=== PATIENT | male | born 1960 | race Caucasian/White ===

== ENCOUNTER 2018-06-15 06:31 | Emergency (ER) | payer BC ==
[2018-06-15] MEDS ORDERED: ASPIRIN 81 MG PO STA (06:48)
[2018-06-15] MEDS ORDERED: SODIUM CHLORIDE 0.9% 1,000 ML IV STA (06:48)
--- NOTE | 2018-06-15 06:49 | ED ---
Chest Pain HPI - General Source: patient Mode of arrival: ambulatory Limitations: no limitations <Sheyla Pascal - Last Filed: 06/15/18 07:07> <John Maynard - Last Filed: 06/15/18 09:42> - General Chief Complaint: Chest Pain Stated Complaint: Back and arm pain Time Seen by Provider: 06/15/18 06:48 - History of Present Illness Initial Comments: Derian is a 57-year-old gentleman with a history of hypertension and hyperlipidemia who presents the emergency department today for evaluation of sudden onset of pain between his scapula reading down his left arm. Patient reports his upper back has been bothering him for a couple of days duration. He reports that he woke this morning and went to get out of bed he had sudden worsening of the pain between his scapula. Pain radiated down his left arm and felt like numbness in his left arm. Patient states the pain was 10 out of 10 intensity at onset, he did take 2 aspirin at home however he notes the in 2012. Patient reports that since coming to the emergency department his pain is improving and is now rated a 7 out of 10 intensity. Pain is sharp between his scapula. She denies any recent injury though he does report he thought he tweaked his back days ago. Patient denies any cardiac history or history of cardiovascular peripheral vascular or peripheral arterial disease. (Sheyla Pascal) - Related Data Home Medications Medication Instructions Recorded Confirmed Losartan Potassium [Cozaar] 100 mg PO DAILY 08/02/14 06/15/18 Ascorbic Acid/Multivit-Min 1,000 mg PO DAILY 06/15/18 06/15/18 [Emergen-C 1,000 mg Packet] Aspirin EC [Ecotrin Low Dose] 162 mg PO ONCE PRN 06/15/18 06/15/18 LORazepam [Ativan] 0.25 - 0.5 mg PO HS PRN 06/15/18 06/15/18 Previous Rx's Medication Instructions Recorded Cyclobenzaprine [Flexeril] 10 mg PO TID PRN #12 tablet 06/15/18 Allergies Allergy/AdvReac Type Severity Reaction Status Date / Time dichlorotetrafluoroethane Allergy Unknown Verified 06/15/18 07:17 [From Fluro-Ethyl] ethyl chloride Allergy Unknown Verified 06/15/18 07:17 [From Fluro-Ethyl] Penicillins Allergy Unknown Verified 06/15/18 07:17 sulfacetamide sodium Allergy Unknown Verified 06/15/18 07:17 [From Sulfamide] Review of Systems ROS Other: All systems not noted in ROS Statement are negative. <Sheyla Pascal - Last Filed: 06/15/18 07:07> ROS Other: All systems not noted in ROS Statement are negative. <John Maynard - Last Filed: 06/15/18 09:42> ROS Statement: Those systems with pertinent positive or pertinent negative responses have been documented in the HPI. EKG Findings - EKG Comments: EKG Findings:: EKG obtained at 6:44 AM, rate is 88 rhythm is sinus, there is leftward axis, normal intervals, FL 1 mL 4 QRS 76 QTC 435. There are no acute ST elevations or depressions there is no evidence of acute ischemia or infarction. <Sheyla Pascal - Last Filed: 06/15/18 07:07> Past Medical History Past Medical History: Hyperlipidemia, Hypertension History of Any Multi-Drug Resistant Organisms: None Reported Past Surgical History: Orthopedic Surgery Past Anesthesia/Blood Transfusion Reactions: No Reported Reaction Past Psychological History: No Psychological Hx Reported Smoking Status: Never smoker Past Alcohol Use History: Occasional Past Drug Use History: None Reported - Past Family History Father Family Medical History: Cancer Additional Family Medical History / Comment(s): prostate & skin cancer Mother Family Medical History: Cancer <Sheyla Pascal - Last Filed: 06/15/18 07:07> General Exam Limitations: no limitations <Sheyla Pascal - Last Filed: 06/15/18 07:07> <John Maynard - Last Filed: 06/15/18 09:42> - General Exam Comments Initial Comments: GENERAL: Patient is well-developed and well-nourished. Patient is nontoxic and well- hydrated and is in no distress. HENT: Normocephalic, Atraumatic. Neck is soft and supple. No significant lymphadenopathy is noted. Oropharynx is clear. Moist mucous membranes. Neck has full range of motion without eliciting any pain. EYES: The sclera were anicteric and conjunctiva were pink and moist. Extraocular movements were intact and pupils were equal round and reactive to light. Eyelids were unremarkable. PULMONARY: Unlabored respirations. Good breath sounds bilaterally. No audible rales rhonchi or wheezing was noted. CARDIOVASCULAR: There is a regular rate and rhythm without any murmurs gallops or rubs. Warm and well-perfused extremities Pulses present and equal ABDOMEN: Soft and nontender with normal bowel sounds. No pulsating masses in the abdomen SKIN: Skin is clear with no lesions or rashes and otherwise unremarkable. Normal color, no mottling, no diaphoresis NEUROLOGIC: Patient is alert and oriented x3. Cranial nerves II through XII are grossly intact. Motor and sensory are also intact. Normal speech, volume and content. Symmetrical smile. MUSCULOSKELETAL: Normal extremities with adequate strength and full range of motion. No lower extremity swelling or edema. No calf tenderness. LYMPHATICS: No significant lymphadenopathy is noted PSYCHIATRIC: Normal psychiatric evaluation. Limitations: no limitations (Sheyla Pascal) Course <Sheyla Pascal - Last Filed: 06/15/18 07:07> <John Maynard - Last Filed: 06/15/18 09:42> Vital Signs 06/15/18 06/15/18 06/15/18 06:46 07:24 07:30 Temperature 97.9 F Pulse Rate 92 80 77 Respiratory 18 13 12 Rate Blood Pressure 166/108 164/107 164/107 O2 Sat by Pulse 96 96 95 Oximetry 06/15/18 07:50 Temperature Pulse Rate 80 Respiratory 18 Rate Blood Pressure 154/96 O2 Sat by Pulse 97 Oximetry - Reevaluation(s) Reevaluation #1: 06/15/18 09:40 Computed tomography scan of the chest shows ectatic aorta. No aneurysm or dissection. Some enlarged lymph nodes. Patient and family are advised regarding lymph nodes and need for follow-up for this as well as need for follow -up computed tomography scan for this. They do demonstrate understanding. Chest x-ray shows no acute process. Patient reevaluated by myself, Dr. Maynard. Patient resting comfortably in bed. Discomfort 10/26. Patient states onset of symptoms was actually 4 days ago. Patient states this was on his tractor. Patient states he was turning his head as he was moving. Patient has had intermittent symptoms for the past 4 days. Symptoms were much worse throughout the night. Patient states symptoms are improved or worsen with position changes. Patient denies ever having any chest discomfort. No dyspnea. Patient and family are updated on results. Patient and family are comfortable with discharge and agreeable to close follow-up with primary care physician. (John Maynard) Chest Pain MDM <Sheyla Pascal - Last Filed: 06/15/18 07:07> <John Maynard - Last Filed: 06/15/18 09:42> - MDM The patient was seen and evaluated history was valuate by the patient and at bedside Patient with minimal cardiac history presenting with sudden onset of a sharp stabbing pain between his scapula with numbness down the left arm Is hemodynamically stable, cardiac risks factors include hypertension and hyperlipidemia The patient's physical exam is unremarkable patient is in mild distress Cardiac workup was ordered, chest x-ray ordered Aspirin ordered Patient care was signed out to Dr. Maynard at shift change she will follow up on labs imaging and reevaluation of patient (Sheyla Pascal) Disposition <Sheyla Pascal - Last Filed: 06/15/18 07:07> Is patient prescribed a controlled substance at d/c from ED?: No Time of Disposition: 09:42 <John Maynard - Last Filed: 06/15/18 09:42> Clinical Impression: Thoracic back pain Disposition: HOME SELF-CARE Condition: Stable Instructions (If sedation given, give patient instructions): Thoracic Pain (ED) Additional Instructions: Please follow-up with primary care physician in the next day or 2 for recheck. Return for chest pain, difficulty breathing, weakness, worsening or change in symptoms, or any other concerns. Please have your primary care physician review CT results and he will need repeat follow-up computed tomography scan in the next 3 months. Prescriptions: Cyclobenzaprine [Flexeril] 10 mg PO TID PRN #12 tablet PRN Reason: Pain Referrals: Rahul Hernandez DO [Primary Care Provider] - 1-2 days
--- NOTE | 2018-06-15 07:07 | XR ---
EXAMINATION TYPE: XR chest 2V DATE OF EXAM: 06/15/2018 COMPARISON: NONE HISTORY: Shortness of breath TECHNIQUE: Frontal and lateral views of the chest are obtained. FINDINGS: Scattered senescent parenchymal changes noted. Hyperinflation compatible with COPD. No evidence for infiltrate. No evidence for atelectasis. Heart size is stable. Mediastinal structures are stable and grossly unremarkable. No evidence for hilar prominence. Degenerative changes dorsal spine. IMPRESSION: 1. No evidence for acute pulmonary disease.
[2018-06-15 07:26] VITALS: PULSE 80
[2018-06-15 07:27] LABS: Basophils # (A) 0.1 k/uL (0-0.2); Basophils % (A) 1 %; Eosinophils # (A) 0.1 k/uL (0-0.7); Eosinophils % (A) 2 %; HCT 43.3 % (39.0-53.0); Lymphocytes # (A) 1.3 k/uL (1.0-4.8); Lymphocytes % (A) 19 %; MCH 30.7 pg (25.0-35.0); MCHC 34.7 g/dL (31.0-37.0); MCV 88.3 fL (80.0-100.0); Mean Platelet Volume 7.4; Monocytes # (A) 0.4 k/uL (0-1.0); Monocytes % (A) 6 %; Neutrophils # (A) 4.7 k/uL (1.3-7.7); Neutrophils % (A) 70 %; Platelet Count 229 k/uL (150-450); RDW 12.7 % (11.5-15.5); WBC 6.6 k/uL (3.8-10.6)
[2018-06-15 07:32] LABS: INR 0.9 (<1.2); Partial Thromboplastin Time 24.9 sec (22.0-30.0); Prothrombin Time 10.1 sec (9.0-12.0)
[2018-06-15 07:33] LABS: ALT 44 U/L (21-72); AST 30 U/L (17-59); Albumin 4.1 g/dL (3.5-5.0); Alkaline Phosphatase 71 U/L (38-126); Anion Gap 7 mmol/L; Blood Urea Nitrogen 16 mg/dL (9-20); Calcium 9.1 mg/dL (8.4-10.2); Carbon Dioxide 25 mmol/L (22-30); Chloride 109 mmol/L (98-107); Glucose 94 mg/dL (74-99); Magnesium 1.7 mg/dL (1.6-2.3); Sodium 141 mmol/L (137-145); Total Bilirubin 0.8 mg/dL (0.2-1.3); Total Protein 6.5 g/dL (6.3-8.2)
[2018-06-15 07:49] LABS: Creatine Kinase 128 U/L (55-170)
[2018-06-15 08:00] VITALS: RESP 18
[2018-06-15 08:03] LABS: Creatine Kinase MB 0.9 ng/mL (0.0-2.4); Troponin I <0.012 ng/mL (0.000-0.034)
--- NOTE | 2018-06-15 09:20 | CT ---
EXAMINATION TYPE: CT angio chest DATE OF EXAM: 06/15/2018 COMPARISON: Radiograph same day HISTORY: 57-year-old male Back and arm pain; Eval aorta TECHNIQUE: Contiguous axial scanning of the chest performed without and with IV Contrast, patient inj ected with 100 ml mL of Isovue 370. Coronal/sagittal MIP reconstructions performed. 3-D reconstructio ns generated on a dedicated independent workstation. CT DLP: 869.8 mGycm Automated exposure control for dose reduction was used. FINDINGS: Heart normal size without pericardial effusion. Initial noncontrast images show no evidence for acute intramural hematoma. The ascending aorta is ectatic at 3.7 cm. Conventional arch vessel branching anatomy. Remainder of the aorta is normal caliber. No evidence for aortic dissection. No pulmonary embolus seen to the proximal segmental level. Nonspecific, mildly enlarged 1.1 cm right paratracheal lymph nodes and 1.2 cm subcarinal lymph node. Calcified left hilar lymph nodes compatible with prior granulomatous disease. Evaluation of the lungs shows mild biapical pleural parenchymal scarring and mild dependent atelectas is. There is a calcified granuloma in the posterior left base with bands of atelectasis or scarring i n the left lower lobe. Additional tiny calcified granulomas lateral left midlung along the major fiss ure. Visualized upper abdomen shows no gross abnormality. Bones: Endplate spondylosis mid to lower thoracic spine. No osseous destructive process. IMPRESSION: 1. ECTATIC ASCENDING AORTA AT 3.7 CM WITHOUT ALEX ANEURYSM. NO EVIDENCE FOR ACUTE INTERNAL HEMATOMA OR AORTIC DISSECTION. 2. A COUPLE MILDLY ENLARGED PARATRACHEAL LYMPH NODES MEASURE UP TO 1.1 CM. THIS MAY RELATE TO PRIOR G RANULOMATOUS DISEASE. [address] MONTH FOLLOW-UP CT RECOMMENDED TO ENSURE STABILITY/RESOLUTION.
[2018-06-15] MEDS ORDERED: ORPHENADRINE 30 MG/ML 2 ML VIAL IVP STA (09:33)
[2018-06-15] MEDS ORDERED: KETOROLAC 30 MG/ML 1 ML VIAL IVP STA (09:33)
[2018-06-15] MEDS ORDERED: CYCLOBENZAPRINE 10MG STARTER 3 TAB BTL PO STA (09:48)
[2018-06-15 10:11] VITALS: BP 158/95; TEMP 98.5
== END 2018-06-15 10:05 | disposition home or self-care (01) ==
LOC: EC 06:31
DX: M54.6 Pain in thoracic spine (principal); R07.9 Chest pain, unspecified; R20.0 Anesthesia of skin; I77.819 Aortic ectasia, unspecified site; I10 Essential (primary) hypertension; Z79.82 Long term (current) use of aspirin; Z79.899 Other long term (current) drug therapy; Z88.8 Allergy status to other drugs, medicaments and biological substances; Z88.0 Allergy status to penicillin; Z88.2 Allergy status to sulfonamides; Z86.39 Personal history of other endocrine, nutritional and metabolic disease
CPT/HCPCS: 36415; 93005; 85379; 83880; 80053; 82550; 82553; 83735; 84484; 85025; 85610; 85730; 71046; 71275; 99285; 96374; 96361 ×2; J1885; Q9967

== ENCOUNTER 2018-08-03 11:38 | Day surgery (SDC) | payer BC ==
[2018-07-23 13:08] VITALS: BMI 27.9
[~2018-08-03 11:38] MED LIST: BACITRACIN 50,000 UNIT, POLYMYXIN B 500,000 UNIT in SODIUM CHLORIDE 0.9% IRRIGATIO 1,00... IRRIGATION ONE; CLINDAMYCIN 900 MG in DEXTROSE 5% IN WATER 50 ML IVPB ONE; HYDROmorphone 0.5 MG/0.5 ML SYRINGE IVP PRN; LACTATED RINGERS 1,000 ML IV SCH; MORPHINE SULFATE 4 MG/ML SYRINGE IV PRN
[2018-08-03] MEDS ORDERED: LIDOCAINE 1% 20 ML VIAL (10MG/ML) FOR IV START SQ ONE (12:14)
[2018-08-03] MEDS ORDERED: GLYCOPYRROLATE 0.2 MG/ML 2 ML VIAL ONE (12:51)
[2018-08-03] MEDS ORDERED: NEOSTIGMINE 1 MG/ML 10 ML VIAL ONE (12:51)
[2018-08-03] MEDS ORDERED: PROPOFOL 10 MG/ML 20 ML VIAL IV ONE (12:51)
[2018-08-03] MEDS ORDERED: ePHEDrine SULFATE/0.9% NACL/PF 50 MG/5 ML SYRINGE IV ONE (12:51)
[2018-08-03] MEDS ORDERED: DEXAMETHASONE SOD PHOS (MDV) 100 MG/10 ML VIAL ONE (12:51)
[2018-08-03] MEDS ORDERED: PHENYLEPHRINE-0.9% NACL SYG 1 MG/10 ML SYRINGE ONE (12:51)
[2018-08-03] MEDS ORDERED: LIDOCAINE 1% INJ 10MG/ML (20 ML MDV) ONE (12:51)
[2018-08-03] MEDS ORDERED: ONDANSETRON 4 MG/2 ML VIAL ONE (12:51)
[2018-08-03] MEDS ORDERED: fentaNYL (PF) 50 MCG/ML 2 ML AMP ONE (12:51)
[2018-08-03] MEDS ORDERED: SUCCINYLCHOLINE CHLORIDE 100 MG/5 ML SYR IV ONE (12:51)
[2018-08-03] MEDS ORDERED: MIDAZOLAM 2 MG/2 ML VIAL ONE (12:51)
[2018-08-03] MEDS ORDERED: THROMBIN (BOVINE) 5,000 UNIT VIAL TOPICAL ONE (13:39)
[2018-08-03] MEDS ORDERED: GELATIN SPONGE,ABSORB (LARGE) 1 EACH SPONGE MISCELLANE ONE (13:39)
[2018-08-03] MEDS ORDERED: BUPIVACAIN-EPI 0.5%-1:200,000 30 ML VIAL SQ ONE (13:39)
[2018-08-03] MEDS ORDERED: HYDROmorphone 0.5 MG/0.5 ML SYRINGE IVP PRN (14:25)
[2018-08-03] MEDS ORDERED: ACETAMINOPHEN TAB 325 MG TAB PO PRN (14:25)
[2018-08-03] MEDS ORDERED: ONDANSETRON 4 MG/2 ML VIAL IVP PRN (14:25)
[2018-08-03] MEDS ORDERED: BENZOCAINE/MENTHOL LOZENG 1 EACH LOZENGE MUCOUS MEM PRN (14:25)
[2018-08-03] MEDS ORDERED: LORazepam 0.5 MG TAB PO PRN (14:27)
[2018-08-03] MEDS ORDERED: Acetaminophen-Codeine 300-30mg TAB PO PRN (14:27)
[2018-08-03] MEDS ORDERED: SODIUM CHLORIDE 0.9% 1,000 ML IV SCH (14:30)
--- NOTE | 2018-08-03 14:32 | P.OP ---
Date of Procedure: 08/03/18 Preoperative Diagnosis: Herniated nuclear pulposus C6 7, left upper extremity radiculopathy, left upper extremity weakness Postoperative Diagnosis: Same Anesthesia: GETA Pathology: none sent Condition: stable Disposition: PACU Description of Procedure: BRIEF OPERATIVE NOTE Preoperative Diagnosis:Herniated nuclear pulposus C6 7, left upper extremity radiculopathy, left upper extremity weakness Postoperative Diagnosis: Same Procedure: Anterior cervical decompression with discectomy and fusion C6 7 Placement of interbody allograft bone graft C6 7 Application of anterior cervical plate C6 7 Surgeon: Dr. Storey Checkering Machine Adjuster: Kelvin Curry is present throughout the entire the case persistence during positioning, dissection, exposure, visualization, and all crucial elements of the case as well as closure. Anesthesia: General anesthesia Estimated blood loss: Approximately 20 mL Complications: None apparent Components implanted: K2M [place] anterior cervical plate system with Vikos interbody allograft bone graft Disposition: To recovery room in good stable condition. OPERATIVE INDICATIONS The patient has had significant and severe issues in their neck and upper extremities on the left. His found have a extruded disc herniation at C6 7 which collated with his neck and left upper extremity symptoms. He is having severe radiculopathy in his left upper extremity and was having some evidence of weakness over C7 distribution. The patient has been through conservative treatment. He was not having any benefit despite conservative treatment. We discussed various treatment options including surgery, and the patient wishes to proceed with surgery We discussed the risk, patient's alternatives and benefits of surgery including but not limited to, risk of bleeding risk of infection, risk of need for further surgery, risk of decreased, loss of motion, muscle function, malunion nonunion, hardware failure, nerve damage, paralysis, heart attack, and . OPERATIVE SUMMARY After discussing all the risks, patient alternatives and benefits at length, the patient elected to proceed with surgical intervention, signed informed consent, and presented for their procedure. The patient was seen and examined in the preoperative holding area and the surgical site was marked. The patient was given antibiotics and brought to the operating room. The patient was positioned on the operating room table in a supine position being careful to pad any bony prominences and pressure points. The patient was sedated and intubated by anesthesia in standard fashion. Once the airway and C- spine were stabilized the patient's arms were padded and tucked at her side, with her shoulders gently taped. The head was placed in a donut pad with the neck in good neutral alignment and position. We were careful to maintain the patient's cervical spine and good neutral alignment and position throughout. The patient was prepped and draped in a normal standard fashion. An appropriate timeout and keystone protocol performed. We were able to proceed with the surgery. The local wound area was infiltrated with local anesthetic. An incision was made transversely approximately 2-1/2 cm over the appropriate levels of C6 7. Dissection was taken down subcutaneously to the level of the platysma which was split in line with its fibers. Dissection was taken with a carotid approach, with the trachea and esophagus medial and the carotid sheath laterally. We dissected down to the anterior surface of the vertebral bodies of C6 and C7. Intraoperative x-ray was taken which showed a marker at the appropriate level of C6-7. With the appropriate level positively confirmed, we were able to proceed with discectomy at the appropriate levels of C6 7. All of the operative levels were exposed appropriately. The patient had all their twitches back, and there was no evidence of recurrent laryngeal issue. The wound was copiously irrigated and suctioned dry as had been done periodically throughout the case. At the appropriate level of C6 7, I established an annulotomy with an 11 blade scalpel. A discectomy was performed with a combination of pituitary rongeurs, curettes, a high-speed bur, and Kerrison rongeurs. The posterior longitudinal ligament was taken down as were any posterior osteophytes. There is a number of disc herniation fragments posteriorly particular to the left side. There is extruded disc which was able to be removed. This gave good central and bilateral foraminal decompression. There is no evidence of any dural tear or leak. The endplates were prepared with a high-speed bur. With the endplates in good parallel position, I was able to size for the appropriate size interbody graft. The wound was irrigated and suctioned dry the graft was prepared and malleted into position. It had good alignment and position with the anterior surface flush with the anterior surface of the vertebral bodies. With the grafts intact, I was able to measure and contour and appropriate sized plate. The plate was positioned at the midline over the appropriate levels of C6 and 7. Screw holes were established with a hand drill and drill guide. Screws were placed in good alignment and position with excellent bony purchase. They were seated under the locking device. The construct was checked and found to be stable. Intraoperative x-ray was taken which showed good alignment and position of the implants at the appropriate levels. There was no evidence of any dural tear or leak. Good hemostasis was maintained. The wound was copiously irrigated and suctioned dry as had been done periodically throughout the case. The platysma was closed with absorbable suture. The subcutaneous tissue was closed. The subcuticular tissue was closed with absorbable suture. The wound was cleaned and dried and dressed appropriately. A soft cervical collar was placed appropriately. The patient was woken up by anesthesia, extubated, transferred back gently to their hospital bed and brought to the recovery room in good stable condition. The patient will be admitted to the hospital for appropriate postoperative care, medical management and monitoring. We will continue to follow them closely about the postoperative course.
[2018-08-03 14:52] VITALS: TEMP 97.1
[2018-08-03 15:01] VITALS: RESP 16
[2018-08-03 15:59] VITALS: BP 169/99; PULSE 99
--- NOTE | 2018-08-03 15:59 | XR ---
EXAMINATION TYPE: XR cervical spine 1V DATE OF EXAM: 08/03/2018 COMPARISON: NONE HISTORY: 58-year-old male needle placement TECHNIQUE: Single crosstable lateral view FINDINGS: Patient intubated and in the OR. A metal needle traverses the anterior soft tissues and is in within the inferior C6 endplate region. IMPRESSION: Surgical needle at the anterior C6 inferior endplate region.
--- NOTE | 2018-08-03 15:59 | XR ---
EXAMINATION TYPE: XR cervical spine 1V DATE OF EXAM: 08/03/2018 COMPARISON: NONE HISTORY: 50-year-old male hardware placement TECHNIQUE: Single crosstable lateral view FINDINGS: Intraoperative view. Patient intubated. Interval placement of C6-C7 ACDF. IMPRESSION: Interval C6-C7 ACDF placement.
[2018-08-03] MEDS ORDERED: CLINDAMYCIN 900 MG in DEXTROSE 5% IN WATER 50 ML IVPB SCH ×2 (16:00)
[2018-08-03] MEDS ORDERED: ACETAMINOPHEN TAB 500 MG TAB PO SCH (21:00)
[2018-08-04] MEDS ORDERED: LOSARTAN 50 MG TAB PO SCH (09:00)
[2018-08-04] MEDS ORDERED: ASCORBIC ACID 500 MG TAB PO SCH (09:00)
== END 2018-08-03 16:54 | disposition home or self-care (01) ==
LOC: OR 11:38
PROVIDERS: ATTEND Orthopaedic Surgery Orthopaedic Surgery of the Spine
DX: M50.123 Cervical disc disorder at C6-C7 level with radiculopathy (principal); G62.9 Polyneuropathy, unspecified; I10 Essential (primary) hypertension; H40.9 Unspecified glaucoma; J45.909 Unspecified asthma, uncomplicated; Z79.899 Other long term (current) drug therapy; Z88.2 Allergy status to sulfonamides; Z88.1 Allergy status to other antibiotic agents; Z88.0 Allergy status to penicillin; Z91.013 Allergy to seafood
CPT/HCPCS: 72020; 22551; 20931; C1713; C1762; J2250; J2710; J2405; J2001; J3010; J1100; J2370; J0330; J2704

== ENCOUNTER → 2018-09-01 | Outpatient (CLI) | payer BC ==
--- NOTE | 2018-09-01 16:21 | US ---
EXAMINATION TYPE: US kidneys/renal and bladder DATE OF EXAM: 09/01/2018 COMPARISON: NONE CLINICAL HISTORY: N20.[address] today EXAM MEASUREMENTS: Right Kidney: 12.0 x 5.7 x 6.3 cm Left Kidney: 10.2 x 5.6 x 5.6 cm Right Kidney: multiple echogenic foci seen, largest was mid pole = 0.7cm Left Kidney: unable to appreciate small stones seen on CT, mid to upper pole 2.7cm hypoechoic area, u nable to determine if normal anatomy versus mass. Bladder: wnl Bilateral Jets seen: yes IMPRESSION: 1. The banquet set up person delineate the area of lobulated contour in the left upper pole however images are not clear whether this simply relates to the patient's anatomy or a mass. CT with contrast of the abd omen is recommended as sonography was inconclusive. 2. Bilateral nonobstructing renal calculi are better appreciated on CT.
== END | disposition home or self-care (01) ==
LOC: RADUSWWP 15:19
PROVIDERS: ATTEND Family Medicine
DX: N20.0 Calculus of kidney (principal)
CPT/HCPCS: 76770

== ENCOUNTER → 2018-09-01 | Outpatient (CLI) | payer BC ==
--- NOTE | 2018-09-01 14:40 | CT ---
EXAMINATION TYPE: CT abdomen pelvis wo con DATE OF EXAM: 09/01/2018 COMPARISON: 06/15/2018 HISTORY: Left flank and groin pain x [address] DLP: 1043 mGycm Automated exposure control for dose reduction was used. TECHNIQUE: Helical acquisition of images was performed from the lung bases through the pelvis. FINDINGS: LUNG BASES: There is a calcified benign left basilar granuloma. Bandlike pleural parenchymal scarring is also seen of the left lung base. 2 3 mm pulmonary nodules are seen in a subpleural location in th e left lower lung on image 11. LIVER/GB: Unremarkable unenhanced morphology. Gallbladder is partially contracted. No gallstones are seen. PANCREAS: No significant abnormality is seen. SPLEEN: No significant abnormality is seen. ADRENALS: No significant abnormality is seen. KIDNEYS: There is a 3 mm distal ureteral obstructing calculus just proximal to the left ureterovesicu lar junction (approximately 1 cm away). This results in very mild left-sided hydroureteronephrosis. L obulated contour of the left upper pole of the kidney is noted. Underlying left renal mass is not exc luded and could be further evaluated with renal ultrasound or enhanced CT. There are 3 nonobstructing left lower pole 2 mm renal calculi and a punctate 1 mm left midpole renal calculus. There are 2 nono bstructing right upper pole renal calculi measuring 5 mm and 4 mm. Within the right midpole there is a 3 mm nonobstructing calculus. Within the right lower pole there are 4 mm and 3 mm nonobstructing ri ght renal calculi. No right-sided hydronephrosis. FREE AIR: No free air is visualized ADENOPATHY: No greater than 1 cm short axis lymph node is noted of the abdomen or pelvis. REPRODUCTIVE ORGANS: Prostate gland is enlarged. Inguinal rings are patulous with mastectomy changes. URINARY BLADDER: No significant abnormality is seen. OSSEOUS STRUCTURES: Punctate left femoral head sclerotic focus likely represents a small bone island . Mild degenerative changes of the spine are noted BOWEL: No dilated large or small bowel. IMPRESSION: 1. There is a 4 MM OBSTRUCTING CALCULUS WITHIN THE DISTAL LEFT URETER APPROXIMATELY 1 CM FROM THE LEF T URETEROVESICULAR JUNCTION CREATING VERY MILD LEFT-SIDED HYDROURETERONEPHROSIS. MULTIPLE ADDITIONAL NONOBSTRUCTING BILATERAL RENAL CALCULI ARE PRESENT. 2. LOBULATED CONTOUR THE LEFT UPPER POLE MAY SIMPLY RELATE TO ANATOMIC VARIATION HOWEVER RENAL MASS I S NOT ENTIRELY EXCLUDED AND COULD BE FURTHER EVALUATED WITH RENAL ULTRASOUND OR CONTRAST-ENHANCED CT ABDOMEN.
== END | disposition home or self-care (01) ==
LOC: RADCTMAIN 14:11
PROVIDERS: ATTEND Family Medicine
DX: N13.2 Hydronephrosis with renal and ureteral calculous obstruction (principal)
CPT/HCPCS: 74176

== ENCOUNTER → 2018-09-28 | Outpatient (CLI) | payer BC ==
--- NOTE | 2018-09-28 10:48 | CT ---
EXAMINATION TYPE: CT chest wo/w con DATE OF EXAM: 09/28/2018 COMPARISON: Prior CT dated 06/15/2018 HISTORY: Enlarged lymph nodes CT DLP: 847.5 mGycm Automated exposure control for dose reduction was used. CONTRAST: CT scan of the chest is performed without and with IV Contrast, patient injected with 100 mL of Isovu e 300. FINDINGS: LUNGS: The lungs are stable, there is no change in the nodularity seen in the left lung. There is n o pleural effusion or pneumothorax seen. The tracheobronchial tree is patent. MEDIASTINUM: The paratracheal, prevascular, aorticopulmonary window node seen on prior exam are again noted and show similar appearance, mild enlargement. No pericardial effusion is seen. AORTA: No additional significant abnormality is seen. OTHER: Nonobstructive right-sided nephrolithiasis is again seen. Spleen is at the upper limit of nor mal for size. Postop change noted to the lower cervical spine. IMPRESSION: Stable exam.
== END | disposition home or self-care (01) ==
LOC: RADCTMAIN 08:59
PROVIDERS: ATTEND Family Medicine
DX: R59.0 Localized enlarged lymph nodes (principal)
CPT/HCPCS: 71270; Q9967

== ENCOUNTER → 2019-02-18 | Outpatient (CLI) | payer BC ==
--- NOTE | 2019-02-18 15:35 | CT ---
EXAMINATION TYPE: CT chest wo con DATE OF EXAM: 02/18/2019 COMPARISON: 09/28/2018 and 06/15/2018 HISTORY: 58-year-old male unspecified enlarged lymph nodes, Follow up scan per patient TECHNIQUE: Contiguous axial scanning of the chest without IV contrast. Coronal and sagittal reconstru ctions performed. CT DLP: 358.4 mGycm Automated exposure control for dose reduction was used. FINDINGS: Heart normal size without pericardial effusion. Ectatic aortic root at 3.8 cm. Conventional vessel branching anatomy. Redemonstrated nonenlarged and mildly enlarged mediastinal lymph nodes measuring up to 1.1 cm right p aratracheal, 9 mm right tracheobronchial angle, 1.1 cm AP window, 8 mm left tracheobronchial angle, 1 .1 cm subcarinal, and 8 mm left paraesophageal. These lymph nodes are stable from 09/28/2018 but again noted to be larger from 06/15/2018. Trace bilateral gynecomastia. Calcified granuloma at the posterior left lung base. Strandy left basilar atelectasis. 4 mm nodularity along the major fissure peripherally in the left midlung, axial image 27 through 29 i s unchanged. Left apical pleural parenchymal scarring. No consolidation or pleural effusion. Visualized upper abdomen shows no gross abnormal body. Bones: Partially visualized ACDF hardware. Moderate anterior endplate spondylosis mid to lower thorac ic spine. IMPRESSION: 1. NONENLARGED AND MILDLY ENLARGED MEDIASTINAL LYMPH NODES MEASURING UP TO 1.1 CM STABLE FOR 5 MONTHS . THESE ARE NOTED TO BE LARGER FROM 06/15/2018. ADDITIONAL 6-12 MONTH FOLLOW-UP RECOMMENDED. 2. 4 MM NODULARITY PERIPHERALLY IN THE LEFT MID LUNG STABLE FROM 06/07/2018 SUGGESTING A BENIGN ETIOLO GY. THESE CAN ALSO BE REASSESSED AT THE PATIENT'S FOLLOW-UP.
== END | disposition home or self-care (01) ==
LOC: RADCTMAIN 12:04
PROVIDERS: ATTEND Family Medicine
DX: R59.9 Enlarged lymph nodes, unspecified (principal); R91.1 Solitary pulmonary nodule; Z88.0 Allergy status to penicillin; Z88.2 Allergy status to sulfonamides; Z88.1 Allergy status to other antibiotic agents
CPT/HCPCS: 71250

== ENCOUNTER 2019-06-03 11:26 | Day surgery (SDC) | payer BC ==
[2019-05-04 15:03] VITALS: BMI 27.9
[~2019-06-03 11:26] MED LIST changes: -BACITRACIN 50,000 UNIT, POLYMYXIN B 500,000 UNIT in SODIUM CHLORIDE 0.9% IRRIGATIO 1,00... IRRIGATION ONE; -CLINDAMYCIN 900 MG in DEXTROSE 5% IN WATER 50 ML IVPB ONE; -HYDROmorphone 0.5 MG/0.5 ML SYRINGE IVP PRN; -MORPHINE SULFATE 4 MG/ML SYRINGE IV PRN
[2019-06-03 13:03] VITALS: RESP 16; TEMP 97.6
[2019-06-03] MEDS ORDERED: LIDOCAINE 1% (10MG/ML) FOR IV START INTRADERMA ONE (13:05)
[2019-06-03] MEDS ORDERED: PROPOFOL 10 MG/ML 20 ML VIAL IV ONE (13:15)
--- NOTE | 2019-06-03 13:28 | P.PCN ---
Date of Procedure: 06/03/19 Procedure(s) Performed: BRIEF HISTORY: Patient is a 58-year-old pleasant white male scheduled for an elective colonoscopy as a part of screening for colorectal neoplasia. PROCEDURE PERFORMED: Colonoscopy. PREOPERATIVE DIAGNOSIS: Screening for colon cancer. IV sedation per Anesthesia. PROCEDURE: After informed consent was obtained, the patient, was brought into the endoscopy unit. IV sedation was administered by Anesthesia under continuous monitoring. Digital rectal examination was normal. Initially the Olympus CF-160 flexible video colonoscope was then inserted in the rectum, gradually advanced into the cecum without any difficulty. Careful examination was performed as the scope was gradually being withdrawn. Ileocecal valve and the appendiceal orifice were visualized and appeared normal. Prep was excellent. Mucosa of the cecum, ascending colon, transverse colon, descending colon, sigmoid colon, and rectum appeared normal. Retroflexion was performed in the rectum and small internal hemorrhoids were seen. The patient tolerated the procedure well. IMPRESSION: Normal-appearing colon from rectum to cecum with no evidence of colorectal neoplasia . RECOMMENDATIONS: Findings of this examination were discussed with the patient as well as his family. He was advised to have a repeat screening colonoscopy in 10 years..
[2019-06-03 13:52] VITALS: BP 115/80; PULSE 90
== END 2019-06-03 14:04 | disposition home or self-care (01) ==
LOC: ORWHC2ENDO 11:26
PROVIDERS: ATTEND Internal Medicine Gastroenterology
DX: Z12.11 Encounter for screening for malignant neoplasm of colon (principal); K64.8 Other hemorrhoids; I10 Essential (primary) hypertension; E78.5 Hyperlipidemia, unspecified; F39 Unspecified mood [affective] disorder; F41.9 Anxiety disorder, unspecified; Z86.79 Personal history of other diseases of the circulatory system; Z98.1 Arthrodesis status; Z79.1 Long term (current) use of non-steroidal anti-inflammatories (NSAID); Z79.899 Other long term (current) drug therapy; Z88.0 Allergy status to penicillin; Z88.2 Allergy status to sulfonamides; Z91.013 Allergy to seafood
CPT/HCPCS: J2704; G0121; 45378

== ENCOUNTER → 2022-05-01 | Outpatient (CLI) | payer BC ==
--- NOTE | 2022-05-01 18:05 | XR ---
EXAMINATION TYPE: XR lumbosacral spine min 4V DATE OF EXAM: 05/01/2022 COMPARISON: 01/17/2013 HISTORY: Sciatica TECHNIQUE: 5 view lumbar spine FINDINGS: There are 6 lumbar type vertebral bodies. T12 level may be transitional. No spondylolytic d efects are evident. Lower lumbar spine is somewhat limited due to rotation. Disc heights are preserve d. Vertebral body heights are preserved. Mild spondylosis is present. IMPRESSION: 1. Mild spondylosis
== END | disposition home or self-care (01) ==
LOC: RADXRMAIN 11:16
PROVIDERS: ATTEND Family Medicine
DX: M47.816 Spondylosis without myelopathy or radiculopathy, lumbar region (principal)
CPT/HCPCS: 72110

== ENCOUNTER 2023-04-02 08:48 | Day surgery (SDC) | payer BC ==
[2023-03-31 14:23] VITALS: BMI 26.5
[2023-04-02] MEDS ORDERED: LACTATED RINGERS 1,000 ML IV ONE (09:22)
[2023-04-02 09:44] VITALS: TEMP 97.3
[2023-04-02] MEDS ORDERED: LIDOCAINE 1% INJ 10MG/ML (20 ML MDV) ONE (09:57)
[2023-04-02] MEDS ORDERED: PROPOFOL 10 MG/ML 20 ML VIAL IV ONE (09:57)
--- NOTE | 2023-04-02 10:08 | P.PCN ---
Date of Procedure: 04/02/23 Procedure(s) Performed: BRIEF HISTORY: Patient is a 62-year-old pleasant white male scheduled for an elective colonoscopy as a part of evaluation of prior history of colon polyps. Her last colonoscopy was 7 years ago. PROCEDURE PERFORMED: Colonoscopy. PREOPERATIVE DIAGNOSIS: History of colon polyps. IV sedation per Anesthesia. PROCEDURE: After informed consent was obtained, the patient, was brought into the endoscopy unit. IV sedation was administered by Anesthesia under continuous monitoring. Digital rectal examination was normal. Initially the Olympus CF-160 flexible video colonoscope was then inserted in the rectum, gradually advanced into the cecum without any difficulty. Careful examination was performed as the scope was gradually being withdrawn. Ileocecal valve and the appendiceal orifice were visualized and appeared normal. Prep was excellent. Mucosa of the cecum, ascending colon, transverse colon, descending colon, sigmoid colon, and rectum appeared normal. Retroflexion was performed in the rectum and small internal hemorrhoids were seen. The patient tolerated the procedure well. IMPRESSION: Normal-appearing colon from rectum to cecum no evidence of colorectal neoplasia . Small internal hemorrhoids. RECOMMENDATIONS: Findings of this examination were discussed with the patient is well as his family.. He was advised to have a repeat screening colonoscopy in 10 years.
[2023-04-02 10:36] VITALS: BP 120/74; PULSE 80; RESP 16
== END 2023-04-02 10:56 | disposition home or self-care (01) ==
LOC: ORWHC2ENDO 08:48
PROVIDERS: ATTEND Internal Medicine Gastroenterology
DX: Z12.11 Encounter for screening for malignant neoplasm of colon (principal); K64.8 Other hemorrhoids; I10 Essential (primary) hypertension; Z86.010 Personal history of colon polyps; Z88.0 Allergy status to penicillin; Z91.013 Allergy to seafood; Z88.2 Allergy status to sulfonamides; Z79.899 Other long term (current) drug therapy
CPT/HCPCS: 45378; J2001; J2704

== ENCOUNTER 2023-04-06 05:59 | Emergency (ER) | payer BC ==
[2023-04-06] MEDS ORDERED: ONDANSETRON 4 MG/2 ML VIAL IVP STA (06:17)
[2023-04-06] MEDS ORDERED: KETOROLAC 15 MG/ML 1 ML VIAL IVP STA (06:17)
[2023-04-06] MEDS ORDERED: SODIUM CHLORIDE 0.9% 1,000 ML IV ONE (06:17)
[2023-04-06 06:43] LABS: Basophils % (A) 0 %; Eosinophils # (A) 0.3 k/uL (0-0.7); Eosinophils % (A) 4 %; HCT 46.8 % (39.0-53.0); Lymphocytes # (A) 1.2 k/uL (1.0-4.8); Lymphocytes % (A) 17 %; MCH 29.7 pg (25.0-35.0); MCHC 34.1 g/dL (31.0-37.0); MCV 87.2 fL (80.0-100.0); Mean Platelet Volume 8.1; Monocytes # (A) 0.4 k/uL (0-1.0); Monocytes % (A) 5 %; Neutrophils # (A) 4.6 k/uL (1.3-7.7); Neutrophils % (A) 71 %; Platelet Count 200 k/uL (150-450); RBC 5.37 m/uL (4.30-5.90); RDW 12.8 % (11.5-15.5); WBC 6.6 k/uL (3.8-10.6)
--- NOTE | 2023-04-06 06:47 | ED ---
General Adult HPI - General Chief complaint: Abdominal Pain Stated complaint: Abd Pain Time Seen by Provider: 04/06/23 06:16 Source: patient, RN notes reviewed Mode of arrival: ambulatory Limitations: no limitations - History of Present Illness Initial comments: 62-year-old male with past medical history significant for kidney stones presents the emergency department with a chief complaint of left flank pain. Patient reports that he has had left flank pain that started 0400 this morning. Reports it is a sharp constant pain. He is experiencing and at rest. He denies any fevers, nausea, vomiting, dysuria, hematuria. Patient reports hi story of kidney stones. - Related Data Home Medications Medication Instructions Recorded Confirmed Valsartan [Diovan] 160 mg PO DAILY 05/04/19 04/02/23 Nebivolol [Bystolic] 5 mg PO HS 03/31/23 04/02/23 tadalafiL [Cialis] 5 mg PO HS 03/31/23 04/02/23 Previous Rx's Medication Instructions Recorded HYDROcodone/APAP 5-325MG [Stephenson 5] 1 each PO Q6HR PRN #12 tab 04/06/23 Ketorolac [Toradol] 10 mg PO Q8HR #15 tab 04/06/23 Tamsulosin [Flomax] 0.4 mg PO DAILY #7 cap 04/06/23 Allergies Allergy/AdvReac Type Severity Reaction Status Date / Time dichlorotetrafluoroethane Allergy PER Verified 04/06/23 06:11 [From Fluro-Ethyl] ALLERGY TESTING ethyl chloride Allergy PER Verified 04/06/23 06:11 [From Fluro-Ethyl] ALLERGY TESTING Penicillins Allergy facial Verified 04/06/23 06:11 swelling shellfish derived Allergy Rash/Hives/ Verified 04/06/23 06:11 itching Sulfa (Sulfonamide Allergy allergy Verified 04/06/23 06:11 Antibiotics) testing sulfacetamide sodium Allergy Anaphylaxis Verified 04/06/23 06:11 [From Sulfamide] Review of Systems ROS Statement: Those systems with pertinent positive or pertinent negative responses have been documented in the HPI. ROS Other: All systems not noted in ROS Statement are negative. Past Medical History Past Medical History: Hypertension, Prostate Disorder Additional Past Medical History / Comment(s): "LEAKY HEART VALVE", hx kidney stones, tinnitus History of Any Multi-Drug Resistant Organisms: MRSA Date of last positivie culture/infection: 01/14/19 MDRO Source:: Right Leg Past Surgical History: Orthopedic Surgery Additional Past Surgical History / Comment(s): LT SHOULDER SX. LASER SX FOR ACUTE NARROW GLAUCOMA-BILAT. NECK FUSION C-6 C-7 Past Anesthesia/Blood Transfusion Reactions: No Reported Reaction Past Psychological History: No Psychological Hx Reported Smoking Status: Never smoker Past Alcohol Use History: Occasional Past Drug Use History: None Reported - Past Family History Father Family Medical History: Cancer Additional Family Medical History / Comment(s): prostate & skin cancer Mother Family Medical History: Cancer General Exam - General Exam Comments Initial Comments: General: Alert, in no acute distress Head: atraumatic normocephalic. Eyes PERRL, EOMI intact, mucous membranes moist Respiratory: Lungs clear to auscultation bilaterally Cardiovascular: Heart rate regular rate and rhythm Abdominal: Soft without guarding or rebound, no CVA tenderness Extremities: Normal inspection with full range of motion and normal capillary refill Neuroogic: alert and oriented 3, CN II-XII intact, able to ambulate with steady gait Skin: warm dry and intact with normal color Limitations: no limitations Course Vital Signs 04/06/23 04/06/23 04/06/23 06:09 08:00 08:50 Temperature 98 F 97.8 F Pulse Rate 71 70 68 Respiratory 18 18 16 Rate Blood Pressure 189/94 177/98 140/86 O2 Sat by Pulse 96 97 98 Oximetry - Reevaluation(s) Reevaluation #1: 04/06/23 08:03 Should reevaluated. Patient aware of waiting UA and CT results. Patient reports 2 out of 10 pain. Reevaluation #2: 04/06/23 08:23 Pt reevaluated. Patient updated on results. Medical Decision Making - Medical Decision Making Was pt. sent in by a medical professional or institution (, PA, FILM LOADER, urgent ca re, hospital, or fci...) When possible be specific @ -[No] Did you speak to anyone other than the patient for history (EMS, parent, family, police, friend...)? What history was obtained from this source @ -[No] Did you review nursing and triage notes (agree or disagree)? Why? @ -[I reviewed and agree with nursing and triage notes] Were old charts reviewed (outside hosp., previous admission, EMS record, old EKG, old radiological studies, urgent care reports/EKG's, fci records)? Report findings @ -[No old charts were reviewed] Differential Diagnosis (chest pain, altered mental status, abdominal pain women, abdominal pain men, vaginal bleeding, weakness, fever, dyspnea, syncope, headache, dizziness, GI bleed, back pain, seizure, CVA, palpatations, mental health, musculoskeletal)? @ -[not applicable] EKG interpreted by me (3pts min.). @ -[As above] X-rays interpreted by me (1pt min.). @ -[None done] CT interpreted by me (1pt min.). @ -Multiple nonobstructive stones in bilateral kidneys. Of note there is a punctate stone in the bladder. U/S interpreted by me (1pt. min.). @ -[None done] What testing was considered but not performed or refused? (CT, X-rays, U/S, labs)? Why? @ -[None] What meds were considered but not given or refused? Why? @ -[None] Did you discuss the management of the patient with other professionals (professionals i.e. , PA, FILM LOADER, lab, RT, psych nurse, delinquency prevention social worker, cmv driver, teacher, juvenile justice officer, nurse case management)? Give summary @ -[No] Was smoking cessation discussed for >3mins.? @ -[No] Was critical care preformed (if so, how long)? @ -[No] Were there social determinants of health that impacted care today? How? (Homelessness, low income, unemployed, alcoholism, drug addiction, transportation, low edu. Level, literacy, decrease access to med. care, shelter, rehab)? @ -[No] Was there de-escalation of care discussed even if they declined (Discuss DNR or withdrawal of care, Hospice)? DNR status @ -[No] What co-morbidities impacted this encounter? (DM, HTN, Smoking, COPD, CAD, Cancer, CVA, ARF, Chemo, Hep., AIDS, mental health diagnosis, sleep apnea, morbid obesity)? @ -[None] Was patient admitted / discharged? Hospital course, mention meds given and route, prescriptions, significant lab abnormalities, going to OR and other pertinent info. @ -Discharged. This is a 62-year-old male presents the emergency department with left flank pain. Patient had thorough history and physical exam performed physical exam essentially unremarkable. Heart rate regular rate and rhythm, lungs are to auscultation bilaterally abdomen to be tenderness. Vital signs stable. Patient afebrile. Laboratory studies and imaging which revealed multiple nonobstructive right renal calculi with mild left-sided renal calculi with perinephric fat stranding on the left. There is punctate calculus within the bladder no evidence of wall thickening I discussed the results in detail with the patient verbalized understanding all questions were addressed. Pt given 1 L IV fluids, Toradol, Zofran with symptomatic improvement. Patient will be discharged home with Toradol, Flomax, Zofran, Stephenson 1-2 days. Case is discussed with Dr Maynard Eric who agrees with Plan of care.. Undiagnosed new problem with uncertain prognosis? @ -[No] Drug Therapy requiring intensive monitoring for toxicity (Heparin, Nitro, Insulin, Cardizem)? @ -[No] Were any procedures done? @ -[No] Diagnosis/symptom? @ -Flank pain - Nephrolithiasis Acute, or Chronic, or Acute on Chronic? @ -Acute Uncomplicated (without systemic symptoms) or Complicated (systemic symptoms)? @ -Uncomplicated Side effects of treatment? @ -[No] Exacerbation, Progression, or Severe Exacerbation? @ -[No] Poses a threat to life or bodily function? How? (Chest pain, USA, VT, pneumonia, PE, COPD, DKA, ARF, appy, cholecystitis, CVA, Diverticulitis, Homicidal, Suicidal, threat to staff... and all critical care pts) @ -Low likelihood - Lab Data Result diagrams: 04/06/23 06:35 04/06/23 06:35 Lab Results 04/06/23 04/06/23 04/06/23 Range/Units 06:35 06:35 06:35 WBC 6.6 (3.8-10.6) k/uL RBC 5.37 (4.30-5.90) m/uL Hgb 16.0 (13.0-17.5) gm/dL Hct 46.8 (39.0-53.0) % MCV 87.2 (80.0-100.0) fL MCH 29.7 (25.0-35.0) pg MCHC 34.1 (31.0-37.0) g/dL RDW 12.8 (11.5-15.5) % Plt Count 200 (150-450) k/uL MPV 8.1 Neutrophils % 71 % Lymphocytes % 17 % Monocytes % 5 % Eosinophils % 4 % Basophils % 0 % Neutrophils # 4.6 (1.3-7.7) k/uL Lymphocytes # 1.2 (1.0-4.8) k/uL Monocytes # 0.4 (0-1.0) k/uL Eosinophils # 0.3 (0-0.7) k/uL Basophils # 0.0 (0-0.2) k/uL Sodium 140 (137-145) mmol/L Potassium 3.6 (3.5-5.1) mmol/L Chloride 107 (98-107) mmol/L Carbon Dioxide 23 (22-30) mmol/L Anion Gap 10 mmol/L BUN 15 (9-20) mg/dL Creatinine 0.91 (0.66-1.25) mg/dL Est GFR (CKD-EPI)AfAm >90 (>60 ml/min/1.73 sqM) Est GFR (CKD-EPI)NonAf >90 (>60 ml/min/1.73 sqM) Glucose 116 H (74-99) mg/dL Calcium 9.1 (8.4-10.2) mg/dL Total Bilirubin 0.7 (0.2-1.3) mg/dL AST 24 (17-59) U/L ALT 21 (4-49) U/L Alkaline Phosphatase 75 (38-126) U/L Total Protein 6.9 (6.3-8.2) g/dL Albumin 4.3 (3.5-5.0) g/dL Urine Color Light Yellow Urine Appearance Clear (Clear) Urine pH 6.0 (5.0-8.0) Ur Specific [place] 1.018 (1.001-1.035) Urine Protein Negative (Negative) Urine Glucose (UA) Negative (Negative) Urine Ketones Negative (Negative) Urine Blood Moderate H (Negative) Urine Nitrite Negative (Negative) Urine Bilirubin Negative (Negative) Urine Urobilinogen <2.0 (<2.0) mg/dL Ur Leukocyte Esterase Negative (Negative) Urine RBC 39 H (0-5) /hpf Urine WBC 2 (0-5) /hpf Ur Squamous Epith Cells <1 (0-4) /hpf Urine Mucus Rare H (None) /hpf Disposition Clinical Impression: Nephrolithiasis Disposition: HOME SELF-CARE Condition: Stable Instructions (If sedation given, give patient instructions): Kidney Stones (ED) Additional Instructions: Please increasing fluids the next 3-5 days Please take Zofran for nausea and pain medications as needed Please follow-up with urology within 1 week to 10 days Please return to the nearest emergency department if worsening symptoms Prescriptions: Tamsulosin [Flomax] 0.4 mg PO DAILY #7 cap HYDROcodone/APAP 5-325MG [Stephenson 5] 1 each PO Q6HR PRN #12 tab PRN Reason: Pain Ketorolac [Toradol] 10 mg PO Q8HR #15 tab Is patient prescribed a controlled substance at d/c from ED?: No Referrals: Rahul Hernandez DO [Primary Care Provider] - 1-2 days Severiano Lee MD [STAFF PHYSICIAN] - 1-2 days Time of Disposition: 08:26
[2023-04-06 06:50] LABS: ALT 21 U/L (4-49); AST 24 U/L (17-59); African American GFR (CKD) >90 (>60 ml/min/1.73 sqM); Albumin 4.3 g/dL (3.5-5.0); Alkaline Phosphatase 75 U/L (38-126); Anion Gap 10 mmol/L; Blood Urea Nitrogen 15 mg/dL (9-20); Calcium 9.1 mg/dL (8.4-10.2); Carbon Dioxide 23 mmol/L (22-30); Chloride 107 mmol/L (98-107); Glucose 116 mg/dL (74-99); Non-African American GFR(CKD) >90 (>60 ml/min/1.73 sqM); Potassium 3.6 mmol/L (3.5-5.1); Sodium 140 mmol/L (137-145); Total Bilirubin 0.7 mg/dL (0.2-1.3); Total Protein 6.9 g/dL (6.3-8.2)
--- NOTE | 2023-04-06 07:59 | CT ---
EXAMINATION TYPE: CT abdomen pelvis wo con CT DLP: 671.2 mGycm, Automated exposure control for dose reduction was used. DATE OF EXAM: 04/06/2023 7:51 AM COMPARISON: CT abdomen pelvis most recent from CLINICAL INDICATION:Male, 62 years old with history of left flank pain TECHNIQUE: Axial CT of the abdomen and pelvis. Sagittal and coronal reformats were created on a [employer] workstation. Contrast used: None. Oral contrast used: without Oral Contrast (none if empty) FINDINGS: LOWER CHEST: Left lung base granuloma is identified. ABDOMEN LIVER: Unremarkable GALLBLADDER AND BILE DUCTS: Unremarkable. PANCREAS: Unremarkable. SPLEEN: Unremarkable. ADRENAL GLANDS: Unremarkable. KIDNEYS AND URETERS: Multiple nonobstructive right renal calculi are identified. The right ureter is unremarkable. Multiple left-sided renal calculi are identified with mildly asymmetric perinephric fat stranding on the left. The left ureter is of normal caliber, however but there are trace periuretera l inflammatory changes. PELVIS BLADDER: There is a punctate calculus noted layering within the bladder. No evidence of wall thickeni ng. REPRODUCTIVE: Unremarkable. ABDOMEN & PELVIS STOMACH AND BOWEL: Stomach and duodenum are unremarkable. No evidence of bowel obstruction. PERITONEUM/RETROPERITONEUM: No evidence of pneumoperitoneum or free fluid. VASCULATURE: No evidence of aortic aneurysm. MUSCULOSKELETAL: No acute osseous abnormalities LYMPH NODES: No gross evidence for lymphadenopathy. SOFT TISSUE/ABDOMINAL WALL: Unremarkable IMPRESSION: Mild left-sided perinephric and periureteral inflammatory changes without hydronephrosis. Of note, la yering calculus in the bladder may represent a recently passed stone. Correlate with urinalysis findi ngs.
[2023-04-06 08:07] LABS: Appearance,Urine Clear (Clear); Bilirubin,Urine Negative (Negative); Blood,Urine Moderate (Negative); Color,Urine Light Yellow; Glucose,Urine (UA) Negative (Negative); Ketones,Urine Negative (Negative); Leukocyte Esterase,Urine Negative (Negative); Mucus,Urine Rare /hpf; Nitrite,Urine Negative (Negative); Protein,Urine Negative (Negative); RBC,Urine 39 /hpf (0-5); Specific Gravity,Urine 1.018 (1.001-1.035); Squamous Epithelial Cell,Urine <1 /hpf (0-4); Urobilinogen,Urine <2.0 mg/dL (<2.0); WBC,Urine 2 /hpf (0-5)
[2023-04-06 08:21] VITALS: TEMP 97.8
[2023-04-06] MEDS ORDERED: ACET/COD 300 MG/30 MG STARTER PACK 6 TAB BTL PO STA (08:27)
[2023-04-06] MEDS ORDERED: TAMSULOSIN 0.4 MG CAP.ER.24H PO STA (08:27)
[2023-04-06] MEDS ORDERED: ONDANSETRON 4 MG ODT STARTER PACK 2 TAB BTL PO STA (08:27)
[2023-04-06 09:10] VITALS: BP 140/86; PULSE 68; RESP 16
== END 2023-04-06 08:51 | disposition home or self-care (01) ==
LOC: EC 05:59
DX: N20.0 Calculus of kidney (principal); I10 Essential (primary) hypertension; Z91.013 Allergy to seafood; Z88.0 Allergy status to penicillin; Z88.8 Allergy status to other drugs, medicaments and biological substances
CPT/HCPCS: 36415; 80053; 85025; 81001; 74176; 99284; 96374; 96375; 96361; J2405; J1885

== ENCOUNTER 2023-07-02 18:32 | Emergency (ER) | payer BC ==
--- NOTE | 2023-07-02 18:49 | ED ---
Abdominal Pain HPI - General Source: patient, RN notes reviewed Mode of arrival: ambulatory Limitations: no limitations - History of Present Illness MD Complaint: abdominal pain, flank pain <Marianne Woods - Last Filed: 07/02/23 18:49> <Rand Oseguera - Last Filed: 07/02/23 21:31> - General Chief Complaint: Abdominal Pain Stated Complaint: rt side abd pain Time Seen by Provider: 07/02/23 18:47 - History of Present Illness Initial Comments: This is a 63 year old male who presents to the emergency department for concerns of kidney stones. Since about 3pm today he has had pain in the right flank and right groin area. States that this feels similar to prior kidney stones. Denies any burning with urination or blood in his urine. (Marianne Woods) Patient is a 63-year-old male presented ER with a chief complaint of right flank pain. He states earlier this afternoon around 3 PM he started to experience right flank pain with radiation to his right groin. He reports this is similar to prior kidney stones. Denies any dysuria, hematuria, fevers, chills, nausea, vomiting. Patient states that he does follow-up with Dr. Lee. Denies any shortness of breath, chest pain or peripheral edema. (Rand Oseguera) - Related Data Home Medications Medication Instructions Recorded Confirmed Valsartan [Diovan] 160 mg PO DAILY 05/04/19 04/02/23 Nebivolol [Bystolic] 5 mg PO HS 03/31/23 04/02/23 tadalafiL [Cialis] 5 mg PO HS 03/31/23 04/02/23 Previous Rx's Medication Instructions Recorded HYDROcodone/APAP 5-325MG [Aydlett 5] 1 each PO Q6HR PRN #12 tab 04/06/23 Ketorolac [Toradol] 10 mg PO Q8HR #15 tab 04/06/23 Tamsulosin [Flomax] 0.4 mg PO DAILY #7 cap 04/06/23 Ketorolac [Toradol] 10 mg PO Q8HR #15 tab 07/02/23 Tamsulosin [Flomax] 0.4 mg PO DAILY #7 cap 07/02/23 Allergies Allergy/AdvReac Type Severity Reaction Status Date / Time dichlorotetrafluoroethane Allergy PER Verified 07/02/23 18:42 [From Fluro-Ethyl] ALLERGY TESTING ethyl chloride Allergy PER Verified 07/02/23 18:42 [From Fluro-Ethyl] ALLERGY TESTING Penicillins Allergy facial Verified 07/02/23 18:42 swelling shellfish derived Allergy Rash/Hives/ Verified 07/02/23 18:42 itching Sulfa (Sulfonamide Allergy allergy Verified 07/02/23 18:42 Antibiotics) testing sulfacetamide sodium Allergy Anaphylaxis Verified 07/02/23 18:42 [From Sulfamide] Review of Systems ROS Other: All systems not noted in ROS Statement are negative. <Marianne Woods - Last Filed: 07/02/23 18:49> ROS Other: All systems not noted in ROS Statement are negative. <Rand Oseguera - Last Filed: 07/02/23 21:31> ROS Statement: Those systems with pertinent positive or pertinent negative responses have been documented in the HPI. Past Medical History Past Medical History: Hypertension, Prostate Disorder Additional Past Medical History / Comment(s): "LEAKY HEART VALVE", hx kidney stones, tinnitus History of Any Multi-Drug Resistant Organisms: MRSA Date of last positivie culture/infection: 01/14/19 MDRO Source:: Right Leg Past Surgical History: Orthopedic Surgery Additional Past Surgical History / Comment(s): LT SHOULDER SX. LASER SX FOR ACUTE NARROW GLAUCOMA-BILAT. NECK FUSION C-6 C-7 Past Anesthesia/Blood Transfusion Reactions: No Reported Reaction Past Psychological History: No Psychological Hx Reported Smoking Status: Never smoker Past Alcohol Use History: Occasional Past Drug Use History: None Reported - Past Family History Father Family Medical History: Cancer Additional Family Medical History / Comment(s): prostate & skin cancer Mother Family Medical History: Cancer <Marianne Woods - Last Filed: 07/02/23 18:49> General Exam Limitations: no limitations <Marianne Woods - Last Filed: 07/02/23 18:49> General appearance: alert, in no apparent distress Head exam: Present: atraumatic, normocephalic, normal inspection Respiratory exam: Present: normal lung sounds bilaterally. Absent: respiratory distress, wheezes, rales, rhonchi, stridor Cardiovascular Exam: Present: regular rate, normal rhythm, normal heart sounds. Absent: systolic murmur, diastolic murmur, rubs, gallop, clicks GI/Abdominal exam: Present: soft, tenderness (Right lower quadrant. No CVA tenderness), normal bowel sounds. Absent: distended, guarding, rebound, rigid Neurological exam: Present: alert, oriented X3, CN II-XII intact Psychiatric exam: Present: normal affect, normal mood Skin exam: Present: warm, dry, intact, normal color. Absent: rash <Rand Oseguera - Last Filed: 07/02/23 21:31> - General Exam Comments Initial Comments: Visual Physical Exam Vital signs reviewed General: Well-appearing, nontoxic, no acute distress. Head: Normocephalic, atraumatic Eyes: PERRLA, EOMI ENT: Airway patent Chest: Nonlabored breathing Skin: No visual rash, normal skin tone Neuro: Alert and oriented 3 Musculoskeletal: No gross abnormalities (Marianne Woods) Course Vital Signs 07/02/23 18:38 Temperature 98.4 F Pulse Rate 70 Respiratory 18 Rate Blood Pressure 179/86 O2 Sat by Pulse 97 Oximetry Medical Decision Making <Marianne Woods - Last Filed: 07/02/23 18:49> - Lab Data Result diagrams: 07/02/23 19:51 07/02/23 19:51 - Radiology Data Radiology results: report reviewed, image reviewed <Rand Oseguera - Last Filed: 07/02/23 21:31> - Medical Decision Making I performed the QuickNote portion of this chart. Signed Marianne Woods PA-C. (Marianne Woods) Was pt. sent in by a medical professional or institution (LARRY Lizarraga, SEWING SUPERVISOR, urgent care, hospital, or halfway...) When possible be specific @ -No Did you speak to anyone other than the patient for history (EMS, parent, family, police, friend...)? What history was obtained from this source @ -No Did you review nursing and triage notes (agree or disagree)? Why? @ -I reviewed and agree with nursing and triage notes Were old charts reviewed (outside hosp., previous admission, EMS record, old EKG, old radiological studies, urgent care reports/EKG's, halfway records)? Report findings @ -No old charts were reviewed Differential Diagnosis (chest pain, altered mental status, abdominal pain women, abdominal pain men, vaginal bleeding, weakness, fever, dyspnea, syncope, headache, dizziness, GI bleed, back pain, seizure, CVA, palpatations, mental he alth, musculoskeletal)? @ -Differential Abdominal Pain Men: Appendicitis, cholecystitis, diverticulosis, ischemic bowel, pancreatitis, hepatitis, UTI, gastroenteritis, AAA, incarcerated hernia, bowel obstruction, constipation, inflammatory bowel, hepatitis, peptic ulcer disease, splenic infarction, perforated viscus, testicular torsion, this is not meant to be an all-inclusive list EKG interpreted by me (3pts min.). @ -None X-rays interpreted by me (1pt min.). @ -None done CT interpreted by me (1pt min.). @ -CT abdomen pelvis shows mild right hydronephrosis secondary to obstructing 4 mm calculus at the UPJ. There are also nonobstructing calculi bilaterally. Right 7 mm left 5 mm. No left hydronephrosis. There is also prostamegaly. U/S interpreted by me (1pt. min.). @ -None done What testing was considered but not performed or refused? (CT, X-rays, U/S, labs)? Why? @ -None What meds were considered but not given or refused? Why? @ -None Did you discuss the management of the patient with other professionals (professionals i.e. , PA, SEWING SUPERVISOR, lab, RT, psych nurse, social media marketing analyst, criminal justice lawyer, teacher, accounts officer, case investigator)? Give summary @ -No Was smoking cessation discussed for >3mins.? @ -No Was critical care preformed (if so, how long)? @ -No Were there social determinants of health that impacted care today? How? (Homelessness, low income, unemployed, alcoholism, drug addiction, transportation, low edu. Level, literacy, decrease access to med. care, retirement, rehab)? @ -No Was there de-escalation of care discussed even if they declined (Discuss DNR or withdrawal of care, Hospice)? DNR status @ -No What co-morbidities impacted this encounter? (DM, HTN, Smoking, COPD, CAD, Cancer, CVA, ARF, Chemo, Hep., AIDS, mental health diagnosis, sleep apnea, morbid obesity)? @ -prostate disorder, HTN Was patient admitted / discharged? Hospital course, mention meds given and route, prescriptions, significant lab abnormalities, going to OR and other pertinent info. @ -Discharge. Patient is a 63-year-old male presented to ER with a chief complaint of right flank pain. Patient has a history significant for kidney stones. History and physical exam were completed. Vital stable. Patient in no signs of acute distress. No CVA tenderness. Patient was mildly tender to right lower quadrant. Labs obtained in the ER unremarkable. Urine did show a large amount of blood. CT abdomen pelvis significant for mild right hydronephrosis secondary to obstructing 4 mm calculus at the UPJ. There are also nonobstructing calculi bilaterally. Right 7 mm left 5 mm. No left hydronephrosis. There is also prostamegaly. Imaging and lab results discussed with patient. All questions answered. Patient prescribed flomax and toradol. Starter pack of Tylenol 3 given. I instructed him to alternate using Tylenol and T3's. Advised to follow-up with urology in the next 1 to 2 days. Patient follows up with Dr. Lee. Advised increase hydration. Return parameters were discussed. Patient be discharged stable condition with follow-up to urology. Patient expressed understanding and agreement with care plan. Undiagnosed new problem with uncertain prognosis? @ -No Drug Therapy requiring intensive monitoring for toxicity (Heparin, Nitro, Insulin, Cardizem)? @ -No Were any procedures done? @ -No Diagnosis/symptom? @ -Nephrolithiasis/hydronephrosis Acute, or Chronic, or Acute on Chronic? @ -Acute Uncomplicated (without systemic symptoms) or Complicated (systemic symptoms)? @ -Uncomplicated Side effects of treatment? @ -No Exacerbation, Progression, or Severe Exacerbation? @ -No Poses a threat to life or bodily function? How? (Chest pain, [place], [place], pneumonia, PE, COPD, DKA, ARF, appy, cholecystitis, CVA, Diverticulitis, Homicidal, Suicidal, threat to staff... and all critical care pts) @ -No (Rand Oseguera) - Lab Data Lab Results 07/02/23 07/02/23 07/02/23 Range/Units 19:50 19:51 19:51 WBC 10.3 (3.8-10.6) k/uL RBC 5.28 (4.30-5.90) m/uL Hgb 15.8 (13.0-17.5) gm/dL Hct 46.5 (39.0-53.0) % MCV 88.2 (80.0-100.0) fL MCH 29.9 (25.0-35.0) pg MCHC 33.9 (31.0-37.0) g/dL RDW 12.9 (11.5-15.5) % Plt Count 210 (150-450) k/uL MPV 8.1 Neutrophils % 82 % Lymphocytes % 10 % Monocytes % 4 % Eosinophils % 2 % Basophils % 1 % Neutrophils # 8.4 H (1.3-7.7) k/uL Lymphocytes # 1.1 (1.0-4.8) k/uL Monocytes # 0.5 (0-1.0) k/uL Eosinophils # 0.2 (0-0.7) k/uL Basophils # 0.1 (0-0.2) k/uL Sodium 139 (137-145) mmol/L Potassium 4.1 (3.5-5.1) mmol/L Chloride 106 (98-107) mmol/L Carbon Dioxide 25 (22-30) mmol/L Anion Gap 8 mmol/L BUN 16 (9-20) mg/dL Creatinine 0.84 (0.66-1.25) mg/dL Est GFR (CKD-EPI)AfAm >90 (>60 ml/min/1.73 sqM) Est GFR (CKD-EPI)NonAf >90 (>60 ml/min/1.73 sqM) Glucose 115 H (74-99) mg/dL Plasma Lactic Acid Christopher (0.7-2.0) mmol/L Calcium 9.3 (8.4-10.2) mg/dL Total Bilirubin 0.6 (0.2-1.3) mg/dL AST 28 (17-59) U/L ALT 25 (4-49) U/L Alkaline Phosphatase 90 (38-126) U/L Total Protein 7.4 (6.3-8.2) g/dL Albumin 4.7 (3.5-5.0) g/dL Urine Color Yellow Urine Appearance Clear (Clear) Urine pH 7.0 (5.0-8.0) Ur Specific [place] 1.022 (1.001-1.035) Urine Protein Trace H (Negative) Urine Glucose (UA) Negative (Negative) Urine Ketones Negative (Negative) Urine Blood Large H (Negative) Urine Nitrite Negative (Negative) Urine Bilirubin Negative (Negative) Urine Urobilinogen <2.0 (<2.0) mg/dL Ur Leukocyte Esterase Negative (Negative) Urine RBC >182 H (0-5) /hpf Urine Mucus Rare H (None) /hpf 07/02/23 Range/Units 19:51 WBC (3.8-10.6) k/uL RBC (4.30-5.90) m/uL Hgb (13.0-17.5) gm/dL Hct (39.0-53.0) % MCV (80.0-100.0) fL MCH (25.0-35.0) pg MCHC (31.0-37.0) g/dL RDW (11.5-15.5) % Plt Count (150-450) k/uL MPV Neutrophils % % Lymphocytes % % Monocytes % % Eosinophils % % Basophils % % Neutrophils # (1.3-7.7) k/uL Lymphocytes # (1.0-4.8) k/uL Monocytes # (0-1.0) k/uL Eosinophils # (0-0.7) k/uL Basophils # (0-0.2) k/uL Sodium (137-145) mmol/L Potassium (3.5-5.1) mmol/L Chloride (98-107) mmol/L Carbon Dioxide (22-30) mmol/L Anion Gap mmol/L BUN (9-20) mg/dL Creatinine (0.66-1.25) mg/dL Est GFR (CKD-EPI)AfAm (>60 ml/min/1.73 sqM) Est GFR (CKD-EPI)NonAf (>60 ml/min/1.73 sqM) Glucose (74-99) mg/dL Plasma Lactic Acid Christopher 0.9 (0.7-2.0) mmol/L Calcium (8.4-10.2) mg/dL Total Bilirubin (0.2-1.3) mg/dL AST (17-59) U/L ALT (4-49) U/L Alkaline Phosphatase (38-126) U/L Total Protein (6.3-8.2) g/dL Albumin (3.5-5.0) g/dL Urine Color Urine Appearance (Clear) Urine pH (5.0-8.0) Ur Specific [place] (1.001-1.035) Urine Protein (Negative) Urine Glucose (UA) (Negative) Urine Ketones (Negative) Urine Blood (Negative) Urine Nitrite (Negative) Urine Bilirubin (Negative) Urine Urobilinogen (<2.0) mg/dL Ur Leukocyte Esterase (Negative) Urine RBC (0-5) /hpf Urine Mucus (None) /hpf Disposition <Marianne Woods - Last Filed: 07/02/23 18:49> Is patient prescribed a controlled substance at d/c from ED?: No Time of Disposition: 21:22 <Rand Oseguera - Last Filed: 07/02/23 21:31> Clinical Impression: Calculus of kidney, Hydronephrosis concurrent with and due to calculi of kidney and ureter Disposition: HOME SELF-CARE Condition: Stable Instructions (If sedation given, give patient instructions): Kidney Stones (ED) Additional Instructions: Please alternate Aydlett and Motrin for pain control. Follow-up with urology. Return to the ER for any new or worsening symptoms. Prescriptions: Tamsulosin [Flomax] 0.4 mg PO DAILY #7 cap Ketorolac [Toradol] 10 mg PO Q8HR #15 tab Referrals: Rahul Hernandez DO [Primary Care Provider] - 1-2 days Severiano Lee MD [STAFF PHYSICIAN] - 1-2 days
[2023-07-02 19:06] VITALS: BP 179/86; PULSE 70; RESP 18; TEMP 98.4
[2023-07-02 20:02] LABS: Basophils # (A) 0.1 k/uL (0-0.2); Basophils % (A) 1 %; Eosinophils # (A) 0.2 k/uL (0-0.7); Eosinophils % (A) 2 %; HCT 46.5 % (39.0-53.0); HGB 15.8 gm/dL (13.0-17.5); Lymphocytes # (A) 1.1 k/uL (1.0-4.8); Lymphocytes % (A) 10 %; MCH 29.9 pg (25.0-35.0); MCHC 33.9 g/dL (31.0-37.0); MCV 88.2 fL (80.0-100.0); Mean Platelet Volume 8.1; Monocytes # (A) 0.5 k/uL (0-1.0); Monocytes % (A) 4 %; Neutrophils # (A) 8.4 k/uL (1.3-7.7); Neutrophils % (A) 82 %; Platelet Count 210 k/uL (150-450); RBC 5.28 m/uL (4.30-5.90); RDW 12.9 % (11.5-15.5); WBC 10.3 k/uL (3.8-10.6)
[2023-07-02 20:19] LABS: Appearance,Urine Clear (Clear); Bilirubin,Urine Negative (Negative); Blood,Urine Large (Negative); Color,Urine Yellow; Glucose,Urine (UA) Negative (Negative); Ketones,Urine Negative (Negative); Leukocyte Esterase,Urine Negative (Negative); Mucus,Urine Rare /hpf; Nitrite,Urine Negative (Negative); Protein,Urine Trace (Negative); RBC,Urine >182 /hpf (0-5); Specific Gravity,Urine 1.022 (1.001-1.035); Urobilinogen,Urine <2.0 mg/dL (<2.0)
[2023-07-02 20:25] LABS: ALT 25 U/L (4-49); AST 28 U/L (17-59); African American GFR (CKD) >90 (>60 ml/min/1.73 sqM); Albumin 4.7 g/dL (3.5-5.0); Alkaline Phosphatase 90 U/L (38-126); Anion Gap 8 mmol/L; Blood Urea Nitrogen 16 mg/dL (9-20); Calcium 9.3 mg/dL (8.4-10.2); Carbon Dioxide 25 mmol/L (22-30); Chloride 106 mmol/L (98-107); Glucose 115 mg/dL (74-99); Non-African American GFR(CKD) >90 (>60 ml/min/1.73 sqM); Potassium 4.1 mmol/L (3.5-5.1); Sodium 139 mmol/L (137-145); Total Bilirubin 0.6 mg/dL (0.2-1.3); Total Protein 7.4 g/dL (6.3-8.2)
--- NOTE | 2023-07-02 21:02 | CT ---
EXAMINATION TYPE: CT abdomen pelvis wo con CT DLP: 717.9 mGycm, Automated exposure control for dose reduction was used. DATE OF EXAM: 07/02/2023 8:53 PM COMPARISON: 04/06/2023 CLINICAL INDICATION:Male, 63 years old with history of Right flank pain; RT side flank pain. Hx of re nal stones. TECHNIQUE: Axial CT abdomen pelvis wo con;Sagittal and coronal reformats were created on a separate workstation. Contrast used: mL of , (none if empty) Oral contrast used: without Oral Contrast (none if empty) FINDINGS: LOWER CHEST: Unremarkable ABDOMEN LIVER: Unremarkable GALLBLADDER AND BILE DUCTS: Unremarkable. PANCREAS: Unremarkable. SPLEEN: Unremarkable. ADRENAL GLANDS: Unremarkable. KIDNEYS AND URETERS: Mild right hydronephrosis secondary obstructing 4 mm calculus at the ureteropelv ic junction. Additional nonobstructing calculi bilaterally measuring up to 7 mm on the right and 5 mm in the left. No left hydronephrosis. PELVIS BLADDER: Unremarkable REPRODUCTIVE: Calcifications within the scrotum bilaterally. Vasectomy clips are also present. The pr ostate is enlarged measuring up to 5.2 cm in transverse dimension. ABDOMEN & PELVIS STOMACH AND BOWEL: No evidence of bowel obstruction. PERITONEUM/RETROPERITONEUM: No evidence of pneumoperitoneum or free fluid. VASCULATURE: No evidence of aortic aneurysm. MUSCULOSKELETAL: No acute osseous abnormalities. Mild disc degeneration changes are present throughou t the thoracolumbar spine. Grade 1 anterolisthesis of L4 and L5. LYMPH NODES: No gross evidence for lymphadenopathy. SOFT TISSUE/ABDOMINAL WALL: Unremarkable IMPRESSION: 1. Mild right hydronephrosis secondary obstructing 4 mm calculus at the ureteropelvic junction. Jair tional nonobstructing calculi bilaterally measuring up to 7 mm on the right and 5 mm in the left. No left hydronephrosis. 2. Prostatomegaly correlate with serum PSA.
[2023-07-02] MEDS: ACET/COD 300 MG/30 MG STARTER PACK 6 TAB BTL PO STA (21:52)
== END 2023-07-02 21:54 | disposition home or self-care (01) ==
LOC: EC 18:32
DX: N13.2 Hydronephrosis with renal and ureteral calculous obstruction (principal); I10 Essential (primary) hypertension; Z88.0 Allergy status to penicillin; Z91.013 Allergy to seafood; Z88.2 Allergy status to sulfonamides; Z88.8 Allergy status to other drugs, medicaments and biological substances
CPT/HCPCS: 36415; 74176; 80053; 81001; 83605; 85025; 99284

== ENCOUNTER → 2023-07-07 | Outpatient (CLI) | payer BC ==
--- NOTE | 2023-07-07 09:14 | XR ---
EXAMINATION TYPE: XR KUB DATE OF EXAM: 07/07/2023 8:58 AM CLINICAL INDICATION:Male, 63 years old with history of N20.1 CALCULUS OF URETER,N39.0 UTI; [facility] COMPARISON: None. TECHNIQUE: One radiographic view of the abdomen was obtained. FINDINGS: The bowel gas pattern is nonspecific without dilated loops of small or large bowel. There i s no evidence for organomegaly or pneumoperitoneum. The osseous structures are intact. Calcificatio n projects over the left inferior kidney measuring 4 mm. And on the right measuring up to Fecal mater ial and gas are demonstrated throughout the colon and rectum. IMPRESSION: 1. Bilateral renal calculi scan prior CT are not well appreciated likely due to radiography techniqu e. There is a left renal calculus visualized. 2. Nonspecific bowel gas pattern without radiographic evidence for acute process.
== END | disposition home or self-care (01) ==
LOC: RADXRMAIN 08:42
PROVIDERS: ATTEND Urology
DX: N20.2 Calculus of kidney with calculus of ureter (principal)
CPT/HCPCS: 74018